=== PATIENT | male | born 1970 | race Caucasian/White ===

== ENCOUNTER 2016-03-02 20:10 | Emergency (ER) | payer OTHER ==
[~2016-03-02 20:10] MED LIST: TYLENOL 500MG500 MG PO
[2016-03-02] MEDS ORDERED: ZOFRAN ODT4 MG PO (21:01)
[2016-03-02] MEDS ORDERED: NORCO 325 MG-51 TA1 PO (21:01)
[2016-03-02] MEDS ORDERED: BACTRIM DS TAB1 EACH PO (21:01)
[2016-03-03] MEDS ORDERED: KETOROLAC10 MG PO (15:14)
== END 2016-03-02 21:30 | disposition home or self-care (01) ==
LOC: ED 20:10
DX: N20.0 Calculus of kidney (principal)
CPT/HCPCS: J1885; J2405

== ENCOUNTER 2016-03-03 13:19 | Emergency (ER) | payer OTHER ==
[~2016-03-03 13:19] MED LIST changes: +BACTRIM DS TAB1 EACH PO; +NORCO 325 MG-51 TA1 PO; +ZOFRAN ODT4 MG PO
[2016-03-03] MEDS ORDERED: KETOROLAC10 MG PO (15:14)
== END 2016-03-03 15:31 | disposition home or self-care (01) ==
LOC: ED 13:19
DX: N20.0 Calculus of kidney (principal); N13.39 Other hydronephrosis; F17.210 Nicotine dependence, cigarettes, uncomplicated; F10.10 Alcohol abuse, uncomplicated
CPT/HCPCS: J1885

== ENCOUNTER 2017-02-05 16:50 | Emergency (ER) | payer OTHER ==
[~2017-02-05 16:50] MED LIST changes: +KETOROLAC10 MG PO
[2017-02-05 18:31] LABS: HEMOGLOBIN 15.6 g/dL (13.5-18.0); MEAN CELL VOLUME 83 fl (78-100); MEAN CORPUSCULAR HEMOGLOBIN 29 pg (27-31); MEAN CORPUSCULAR HGB CONC 36 g/dL (33-37); MEAN PLATELET VOLUME 10.9 fl (7.4-10.4); PLATELET COUNT 366 K/mm3 (130-400); RED BLOOD COUNT 5.33 M/mm3 (4.20-5.60); RED CELL DISTRIBUTION WIDTH 13.9 % (11.5-14.5); WHITE BLOOD COUNT 16.9 K/mm3 (4.8-10.8)
[2017-02-05 18:39] LABS: ALBUMIN 3.8 g/dL (3.5-5.0); BUN/CREATININE RATIO 10.3 (6.0-26.0); CALCIUM 8.7 mg/dL (8.4-10.2); TOTAL BILIRUBIN 0.6 mg/dL (0.2-1.3); TOTAL PROTEIN 7.3 g/dL (6.3-8.2)
[2017-02-05 18:59] LABS: BAND 6 % (0-10); LYMPHOCYTE 12 % (20-51); MONOCYTE 3 % (3-10); NEUTROPHILS 78 % (42-75)
[2017-02-05 19:15] LABS: URINE APPEARANCE CLEAR; URINE BILIRUBIN NEGATIVE (NEGATIVE); URINE BLOOD TRACE (NEGATIVE); URINE COLOR YELLOW; URINE GLUCOSE NEGATIVE (NEGATIVE); URINE KETONE NEGATIVE (NEGATIVE); URINE LEUKOCYTE ESTERASE NEGATIVE (NEGATIVE); URINE NITRATE NEGATIVE (NEGATIVE); URINE PROTEIN(semi-quant) NEGATIVE (NEGATIVE); URINE UROBILINOGEN NORMAL (NORMAL); URINE WBC 0 /hpf (0-3)
[2017-02-05 19:16] LABS: URINE MUCUS PRESENT (NOT PRESENT)
[2017-02-05] MEDS ORDERED: SEPTRA DS 8001 TAB PO (19:27)
[2017-02-05] MEDS ORDERED: FLOMAX0.4 MG PO (19:27)
[2017-02-05] MEDS ORDERED: PERCOCET 325 MG1 TA2 PO (19:27)
[2017-02-05 19:41] VITALS: BP 145/95
== END 2017-02-05 19:41 | disposition home or self-care (01) ==
LOC: ED 16:50
PROVIDERS: Family Medicine
DX: N23 Unspecified renal colic (principal); Z87.442 Personal history of urinary calculi; Z91.018 Allergy to other foods
CPT/HCPCS: J1885; J7030

== ENCOUNTER 2023-11-24 05:13 | Emergency (ER) | payer BC ==
[~2023-11-24] VITALS: Ht 180.3 cm; Wt 145.5 kg
[~2023-11-24 05:13] MED LIST changes: +FLOMAX0.4 MG PO; +PERCOCET 325 MG1 TA2 PO; +SEPTRA DS 8001 TAB PO
[2023-11-24] MEDS ORDERED: WELLBUTRIN SR150 M2 PO (05:21)
[2023-11-24] MEDS ORDERED: Ondansetron 4 MG/2 ML VIAL IV ONE (05:30)
[2023-11-24] MEDS ORDERED: Ketorolac 30 MG/ML VIAL IV ONE (05:30)
[2023-11-24] MEDS ORDERED: NS 1,000 ML IV SCH (05:30)
[2023-11-24 05:57] LABS: BASO # 0.06 K/mm3 (0.02-0.10); EOS # 0.25 K/mm3 (0.04-0.40); EOS % 2.6 % (0.0-4.0); HEMATOCRIT 49.1 % (42.0-52.0); HEMOGLOBIN 16.8 g/dL (13.5-18.0); LYMPH# 2.29 K/mm3 (1.50-4.00); MEAN CELL VOLUME 86 fl (78-100); MEAN CORPUSCULAR HEMOGLOBIN 29 pg (27-31); MEAN CORPUSCULAR HGB CONC 34 g/dL (33-37); MEAN PLATELET VOLUME 9.9 fl (7.4-10.4); MONO # 0.64 K/mm3 (0.20-0.80); NEU # 6.39 K/mm3 (1.40-6.50); PLATELET COUNT 387 K/mm3 (130-400); RED BLOOD COUNT 5.73 M/mm3 (4.20-5.60); RED CELL DISTRIBUTION WIDTH 13.8 % (11.5-14.5); WHITE BLOOD COUNT 9.7 K/mm3 (4.8-10.8)
[2023-11-24 06:02] LABS: ALBUMIN 4.3 g/dL (3.5-5.0)
[2023-11-24 06:04] LABS: CALCIUM 9.8 mg/dL (8.3-10.5)
[2023-11-24 06:05] LABS: TOTAL PROTEIN 8.1 g/dL (6.4-8.3)
[2023-11-24 06:07] LABS: TOTAL BILIRUBIN 0.5 mg/dL (0.2-1.2)
[2023-11-24] MEDS ORDERED: FLOMAX0.4 MG PO (07:28)
[2023-11-24 08:02] LABS: PH-URINE 5.5 (5.0 - 8.0); URINE APPEARANCE SLIGHTLY CLOUDY (CLEAR); URINE COLOR YELLOW (YELLOW); URINE PROTEIN(semi-quant) TRACE (NEGATIVE)
[2023-11-24 08:03] LABS: URINE BILIRUBIN NEGATIVE (NEGATIVE); URINE BLOOD 3+ (NEGATIVE); URINE GLUCOSE NEGATIVE (NEGATIVE); URINE KETONE NEGATIVE (NEGATIVE); URINE LEUKOCYTE ESTERASE NEGATIVE (NEGATIVE); URINE MUCUS PRESENT (NOT PRESENT); URINE NITRATE NEGATIVE (NEGATIVE)
[2023-11-24] MEDS ORDERED: AMOXICILLIN AND1 TA2 PO (08:08)
[2023-11-24] MEDS ORDERED: Amoxicillin/Clavulanate K+ 875/125 MG TAB PO ONE (08:15)
[2023-11-24 08:25] VITALS: BP 162/95
== END 2023-11-24 08:58 | disposition home or self-care (01) ==
LOC: ED 05:13
PROVIDERS: Nurse Practitioner
DX: K76.0 Fatty (change of) liver, not elsewhere classified (principal); N39.0 Urinary tract infection, site not specified; N13.2 Hydronephrosis with renal and ureteral calculous obstruction; F17.200 Nicotine dependence, unspecified, uncomplicated; Z87.442 Personal history of urinary calculi
CPT/HCPCS: J1885; J2405; J7030